=== PATIENT | female | born 1985 | race Caucasian/White ===

== ENCOUNTER 2017-02-08 19:51 | Emergency (ER) | payer BC ==
--- NOTE | 2017-02-08 19:59 | EDM.PDOC ---
ED HPI GENERAL MEDICAL PROBLEM - General Chief Complaint: Abdominal Pain Stated Complaint: CIST RUPTURED HIP LEG AREA Time Seen by Provider: 02/08/17 19:59 - History of Present Illness INITIAL COMMENTS - FREE TEXT/NARRATIVE: 31-year-old female presents emergency room with left lower quadrant pain. Patient has a history of present significant discomfort following her periods this is been attributed to ruptured ovarian cyst the patient's gets this almost on a monthly basis. The patient is out of her routine medication she usually uses hydrocodone 10/14/24 one or one and a half every 6 hours.. Patient is not having any fevers or chills no nausea no vomiting no constipation no diarrhea no burning or frequency with urination and generally other than her routine pelvic pain is doing okay. Left Lower Abdominal Pain Score (Numeric/FACES): 8 - Related Data Allergies Allergy/AdvReac Type Severity Reaction Status Date / Time Penicillins Allergy Hives Verified 02/08/17 20:00 IV Contrast Allergy Facial Uncoded 02/08/17 20:00 Swelling Home Meds: Home Meds Hydrocodone/Acetaminophen [Hydrocodon-Acetaminophen 5-325] 1 tab PO Q6H PRN [History] Sertraline [Zoloft] 100 mg PO DAILY 02/08/17 [History] buPROPion [Wellbutrin] 75 mg PO DAILY 02/08/17 [History] ED ROS GENERAL - Review of Systems Review Of Systems: See Below Constitutional: Reports: No Symptoms Respiratory: Reports: No Symptoms Cardiovascular: Reports: No Symptoms GI/Abdominal: Reports: No Symptoms : Reports: Pain. Denies: Discharge, Dysuria, Flank Pain, Frequency, Irregular Menses Musculoskeletal: Reports: No Symptoms ED EXAM, GENERAL - Physical Exam Exam: See Below Exam Limited By: No Limitations General Appearance: Alert, No Apparent Distress Head: Atraumatic, Normocephalic Neck: Normal Inspection, Supple, Non-Tender, Full Range of Motion Respiratory/Chest: No Respiratory Distress, Lungs Clear, Normal Breath Sounds Cardiovascular: Regular Rate, Rhythm, No Edema, No Murmur GI/Abdominal: Normal Bowel Sounds, Soft, Other (She has left lower pelvic discomfort no rebound guarding or distention noted no other discomfort noted) Course - Vital Signs Last Recorded V/S: Last Vital Signs Temp 37.1 C 02/08/17 20:02 Pulse 98 02/08/17 20:02 Resp 18 02/08/17 20:02 BP 119/85 02/08/17 20:02 Pulse Ox 98 02/08/17 20:02 - Re-Assessments/Exams Free Text/Narrative Re-Assessment/Exam: 02/08/17 21:[address] Mazariegos patient be scheduled for ultrasound tomorrow morning and the patient will follow up with Dr. Mazariegos tomorrow. Patient will be given a prescription for Lorane from the machine in the waiting room #10, one or 2 every 6 hours as needed Departure - Departure Time of Disposition: 21:20 Disposition: Home, Self-Care 01 Clinical Impression: Pelvic pain, History of ovarian cyst - Discharge Information Referrals: PCP,None [Primary Care Provider] - Robin Mazariegos MD [Physician] - Forms: ED Department Discharge Additional Instructions: Return to the emergency room with any questions problems worsening symptoms. [facility]. If possible he will be scheduled for a pelvic ultrasound tomorrow morning if that is the case follow -up with Dr. Mazariegos early tomorrow afternoon. Call Dr. Mazariegos's office after the ultrasound is scheduled
[2017-02-08 20:07] VITALS: BP 119/85
== END 2017-02-08 21:34 | disposition home or self-care (01) ==
LOC: JD.ED 19:51
DX: R10.2 Pelvic and perineal pain (principal); Z88.0 Allergy status to penicillin; Z91.041 Radiographic dye allergy status; Z79.899 Other long term (current) drug therapy; Z85.43 Personal history of malignant neoplasm of ovary
CPT/HCPCS: 99283; 99284